=== PATIENT | female | born 1965 | race Caucasian/White ===

== ENCOUNTER 2019-06-28 20:55 | Emergency (ER) | payer BC ==
[~2019-06-28] VITALS: Ht 170.2 cm; Wt 111.1 kg
--- NOTE | 2019-06-28 21:00 | NUR ---
PT AMBULATED WITH SLOW STEADY GAIT TO BED #9. DAUGHTER AND AT BEDSIDE.
[2019-06-28 21:03] VITALS: BP 137/78
[2019-06-28] MEDS ORDERED: LORazepam 2 MG/ML VIAL IVP ONE (21:05)
[2019-06-28] MEDS ORDERED: NACL 0.9% 1,000 ML IV ONE (21:05)
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
--- NOTE | 2019-06-28 21:14 | NUR ---
EKG PERFORMED AT BEDSIDE WITH FAMILY PRESENT
--- NOTE | 2019-06-28 21:26 | NUR ---
LABS DRAWN AND GIVEN TO PHLEB
[2019-06-28 21:45] LABS: BASOPHILS % (AUTO) 0.5 % (0.0-2.0); EOSINOPHILS # (AUTO) 0.2 K/uL (0-0.4); HEMATOCRIT 38.7 % (36-48); HEMOGLOBIN 13.1 g/dL (12.0-16.0); LYMPHOCYTES # (AUTO) 3.2 K/uL (2.5-16.5); LYMPHOCYTES % (AUTO) 43.4 % (20.5-51.1); MEAN CORPUSCULAR HEMOGLOBIN 30 pg (27-31); MEAN CORPUSCULAR HGB CONC 34 g/dL (33-37); MEAN CORPUSCULAR VOLUME 87.6 fL (80-94); MONOCYTES # (AUTO) 0.7 K/uL (0.8-1.0); MONOCYTES % (AUTO) 9.9 % (1.7-9.3); NEUTROPHILS # (AUTO) 3.3 K/uL (1.8-7.7); NEUTROPHILS % (AUTO) 44.2 % (42.2-75.2); PLATELET COUNT (AUTO) 190 K/uL (140-450); RED BLOOD CELL COUNT(AUTO) 4.42 MIL/uL (4.20-5.40); RED CELL DISTRIBUTION WIDTH 14.5 % (11.6-13.7); WHITE BLOOD COUNT (AUTO) 7.4 K/uL (4.8-10.8)
[2019-06-28 22:04] LABS: ALBUMIN 3.9 g/dL (3.4-5.0); ANION GAP 15.6 (8-16); CARBON DIOXIDE 28.6 mmol/L (21-32); CREATININE 0.9 mg/dL (0.6-1.3); POTASSIUM 3.2 mmol/L (3.5-5.1); TOTAL BILIRUBIN 0.3 mg/dL (0.0-1.0)
[2019-06-28] MEDS ORDERED: POTASSIUM CHLORIDE 10 MEQ TABER PO ONE (22:25)
[2019-06-28 22:31] VITALS: BP 124/80
--- NOTE | 2019-06-28 22:31 | NUR ---
Patient discharged with v/s stable. Pt encouraged to avoid alcohol and caffeine. Pt instructed to use relaxation techniques and exercise to distract from stress. Written and verbal after care instructions given and explained. Patient verbalized understanding. Ambulatory with steady gait. All questions addressed prior to discharge. Advised to follow up with PMD.
== END 2019-06-28 22:31 | disposition home or self-care (01) ==
LOC: MED 20:55
DX: F41.9 Anxiety disorder, unspecified (principal); E87.6 Hypokalemia
CPT/HCPCS: 36415; 71045; 80053; 84484; 85025; 93005; 96374; 99284; J2060; J7030